=== PATIENT | male | born 1945 | race Caucasian/White ===

== ENCOUNTER 2020-04-24 21:18 | Emergency (ER) | payer OTHER ==
--- NOTE | 2020-04-24 21:47 | EDM.PDOC ---
ED HPI GENERAL MEDICAL PROBLEM - General Chief Complaint: General Stated Complaint: chest pain Time Seen by Provider: 04/24/20 21:46 Source of Information: Reports: Patient - History of Present Illness INITIAL COMMENTS - FREE TEXT/NARRATIVE: Underwent three-vessel bypass with admission 07 April 2020 [facility]. Date of discharge 14 April 2020.. Non-ST elevated myocardial infarct had occurred with transfer from the in [place] to [place]. He is experienced left chest pain since the event, stating it was mild at first and was there while in the hospital but minimal. Since his discharge, and specifically the past 3 days has worsened in the left chest slightly above and lateral of the left nipple. This worsens with deep inspiration motion and palpation. This evening contact with [place] nurse line who advised him to seek evaluation here at the [facility]. They called advising this patient would be presenting. He denies shortness of breath, or any other factors. Denies any palpitations or racing heart. Onset Date: 04/10/20 Duration: Week(s):, Constant, Getting Worse Location: Reports: Chest Quality: Reports: Ache (Constant ache becoming sharp with motion/breath/palpation), Sharp Severity: Moderate Improves with: Reports: None Worsens with: Reports: Breathing, Movement Associated Symptoms: Reports: No Other Symptoms Left Upper Chest Pain Score (Numeric/FACES): 4 - Related Data Allergies Allergy/AdvReac Type Severity Reaction Status Date / Time Mujoqgz-Dov-Oan Reductase Allergy Other Verified 04/24/20 22:13 Inhibitor Home Meds: Home Meds Acetaminophen 650 mg PO Q4H PRN 04/24/20 [History] Amiodarone [Cordarone] 200 mg PO BID 04/24/20 [History] Apixaban [Eliquis] 5 mg PO BID 04/24/20 [History] Beta-Carotene(A) w/C & E/Min [Prosight] 1 tab PO DAILY 04/24/20 [History] Calcium Carbonate [Calcium] 600 mg PO DAILY 04/24/20 [History] Cholecalciferol (Vitamin D3) [Vitamin D3] 25 mcg PO DAILY 04/24/20 [History] Hydrocodone/Acetaminophen [Hydrocodone-Acetamin 5-325 mg] 1 tab PO Q4H PRN 04/24/20 [History] Metoprolol Tartrate 50 mg PO BID 04/24/20 [History] Milk Thistle Seed Extract [Milk Thistle Extract] 1 cap PO DAILY 04/24/20 [History] Multivitamins/Minerals [Vitamins and Minerals] 1 tab PO DAILY 04/24/20 [History] Omeprazole 20 mg PO DAILY 04/24/20 [History] [place]/Pumpkin/Pyg/Zn/B6 [Sm [place] Complex Sftgel] 1 cap PO DAILY 04/24/20 [History] Ubidecarenone [Coenzyme Q10] 100 mg PO DAILY 04/24/20 [History] Vitamin B Complex [B Complex] 1 tab PO DAILY 04/24/20 [History] lisinopriL [Lisinopril] 5 mg PO DAILY 04/24/20 [History] Past Medical History HEENT History: Reports: Glaucoma, Hard of Hearing, Impaired Vision Cardiovascular History: Reports: Afib, Bypass, High Cholesterol Respiratory History: Reports: SOB Gastrointestinal History: Reports: PUD Genitourinary History: Reports: None Musculoskeletal History: Reports: None Neurological History: Reports: None Psychiatric History: Reports: None Endocrine/Metabolic History: Reports: None Hematologic History: Reports: None Immunologic History: Reports: None Oncologic (Cancer) History: Reports: None Dermatologic History: Reports: None - Infectious Disease History Infectious Disease History: Reports: None - Past Surgical History Head Surgeries/Procedures: Reports: None Cardiovascular Surgical History: Reports: Coronary Artery Bypass Other Cardiovascular Surgeries/Procedures: Angiogram Respiratory Surgical History: Reports: None GI Surgical History: Reports: Appendectomy, Other (See Below) (Peptic ulcer repa ir, stomach) Endocrine Surgical History: Reports: None Neurological Surgical History: Reports: None Musculoskeletal Surgical History: Reports: None Oncologic Surgical History: Reports: None Dermatological Surgical History: Reports: None Social & Family History - Family History Family Medical History: Noncontributory - Tobacco Use Smoking Status *Q: Former Smoker Tobacco Use Within Last Twelve Months: No Years of Tobacco use: 21 Smoking Cessation Information Provided To Patient: No Second Hand Smoke Exposure: No ED ROS GENERAL - Review of Systems Review Of Systems: Comprehensive ROS is negative, except as noted in HPI. Constitutional: Denies: Fever, Chills, Malaise ED EXAM, GENERAL - Physical Exam Exam: See Below Free Text/Narrative:: Alert oriented x3 in no acute distress. Rates his pain a 3 or 4, that increases to an 8 with direct pressure over the rib or to deep breath. HEENT is negative to discharge or deformity. PERRLA no icterus no injection. Jakin moist mucous membranes with no erythema. Neck is soft supple no lymphadenopathy no bruit appreciated. Thorax is clear no wheezes no crackles. Cardiac is S1-S2 no appreciated murmur. There is a new incision to the sternum from his recent CABG. Abdomen is soft bowel sounds are present there is an old scar from his peptic ulcer disease repair. No flank pain. rectal is deferred. There is no edema to the lower extremities. Radial pulse correlates with apical heart rate. Palpation of the left lateral chest wall 1 rib above the nipple is point tenderness nonradiating. EKG INTERPRETATION EKG Date: 04/24/20 Time: 21:48 Rhythm: NSR Rate (Beats/Min): 65 [place]: Normal P-Wave: Present QRS: Normal ST-T: Normal QT: Normal Comparison: NA - No Prior EKG Course - Vital Signs Last Recorded V/S: Last Vital Signs Temp 36.5 C 04/24/20 22:06 Pulse 67 04/24/20 23:22 Resp 26 H 04/24/20 23:22 BP 123/50 L 04/24/20 23:22 Pulse Ox 97 04/24/20 23:22 - Orders/Labs/Meds Orders: Active Orders 24 hr Category Date Time Status EKG Documentation Completion [RC] ASDIRECTED Care 04/24/20 21:51 Active Peripheral IV Care [RC] . DIRECTED Care 04/24/20 21:53 Active Chest 1V Frontal [CR] Stat Exams 04/24/20 21:50 Ordered Sodium Chloride 0.9% [Saline Flush] Med 04/24/20 21:53 Active 10 ml FLUSH Q8HR PRN Peripheral IV Insertion Adult [OM.PC] Routine Oth 04/24/20 21:53 Ordered EKG 12 Lead [EK] Stat Ther 04/24/20 21:45 Ordered Medication Orders Sodium Chloride (Saline Flush) 10 ml FLUSH Q8HR PRN PRN Reason: keep vein open Labs: Laboratory Tests 04/24/20 04/24/20 Range/Units 22:00 22:00 WBC 10.43 H (5.00-10.00) 10^3/uL RBC 3.62 L (4.50-6.00) 10^6/uL Hgb 11.2 L (13.0-17.0) g/dL Hct 32.9 L (40.0-52.0) % MCV 90.9 (82.0-92.0) fL MCH 30.9 (27.0-31.0) pg MCHC 34.0 (32.0-36.0) g/dL RDW 12.7 (11.5-14.5) % Plt Count 495 H (150-400) 10^3/uL MPV 8.9 (7.4-10.4) fL Immature Gran % (Auto) 0.6 (0.0-5.0) % Neut % (Auto) 64.7 (50.0-70.0) % Lymph % (Auto) 24.0 (20.0-40.0) % [place] % (Auto) 7.8 (2.0-8.0) % Eos % (Auto) 2.1 (1.0-3.0) % Baso % (Auto) 0.8 (0.0-1.0) % Neut # (Auto) 6.76 (2.50-7.00) 10^3/uL Lymph # (Auto) 2.50 (1.00-4.00) 10^3/uL [place] # (Auto) 0.81 H (0.10-0.80) 10^3/uL Eos # (Auto) 0.22 (0.10-0.30) 10^3/uL Baso # (Auto) 0.08 (0.00-0.10) 10^3/uL Immature Gran # (Auto) 0.06 (0.00-0.50) 10^3/uL Sodium 137 (136-145) mmol/L Potassium 4.2 (3.3-5.3) mmol/L Chloride 103 (98-115) mmol/L Carbon Dioxide 26.4 (21.0-32.0) mmol/L Anion Gap 11.8 (5-15) mmol/L BUN 38 H (6-25) mg/dL Creatinine 1.91 H (0.51-1.17) mg/dL Est Cr Clr Drug Dosing 30.76 mL/min Estimated GFR (MDRD) 34 mL/min Glucose 124 H (75 - 99) mg/dL Calcium 9.2 (8.7-10.3) mg/dL Total Bilirubin 0.3 (0.2-1.0) mg/dL AST 26 (15-37) U/L ALT 34 (12-78) U/L Alkaline Phosphatase 111 (46-116) IU/L Creatine Kinase 25 L (26-276) U/L CK-MB (CK-2) 0.70 (0.00-4.30) ng/mL Troponin I 0.04 (0.00-0.070) ng/mL B-Natriuretic Peptide 273 H (0-100) pg/mL Total Protein 7.5 (6.4-8.2) g/dL Albumin 3.25 (3.00-4.80) g/dL Meds: Medications Generic Name Dose Route Start Last Admin Trade Name Freq PRN Reason Stop Dose Admin Sodium Chloride 10 ml 04/24/20 21:53 Saline Flush FLUSH Q8HR PRN keep vein open - Radiology Interpretation Free Text/Narrative:: 1 view chest shows cardiac silhouette upper limits. Sternal wires noted. No evidence of pneumothorax. - Re-Assessments/Exams Free Text/Narrative Re-Assessment/Exam: 04/24/20 23:25 Contacted [place] 1 call to get information to the nurse triage line that advised Mr. Cantrell to present. Was attempting to forward all information for his follow-up. 1 call is unable to reach that department. Departure - Departure Time of Disposition: 23:18 Disposition: Home, Self-Care 01 Condition: Good Clinical Impression: Chest wall pain following surgery, Left-sided chest wall pain, Pleural effusion on left, S/P CABG x 3 - Discharge Information *PRESCRIPTION DRUG MONITORING PROGRAM REVIEWED*: Not Applicable *COPY OF PRESCRIPTION DRUG MONITORING REPORT IN PATIENT IRMA: Not Applicable Instructions: Chest Wall Pain, [id number] Referrals: Brittany Emerson MD [Primary Care Provider] - Forms: ED Department Discharge Additional Instructions: There is no evidence of cardiac involvement with tonight's evaluation. Lab work and EKG are negative for heart involvement. You have a very small amount of fluid at the base of the left lung, which sometimes occurs after heart surgery. Your kidney number(creatinine) is elevated, likely from testing and procedures during your hospitalization. Make sure you maintain adequate water intake. The position and reproduction of your pain with breathing as well as when I push on it yields it to be chest wall/rib/musculature discomfort, likely secondary of the bypass surgery. Continue all your medications as directed. Follow-up on Monday as previously scheduled. If this continues or worsens options for further evaluation would be considered, this may be repeated here, or further studies needing to be obtained at the [facility]. This would be such as ultrasound or cardiac ultrasound/echocardiogram. Call or return if symptoms worsen Sepsis Event Note (ED) - Focused Exam Vital Signs: Vital Signs Temp Pulse Resp BP Pulse Ox 04/24/20 23:22 67 26 H 123/50 L 97 04/24/20 23:07 59 L 16 118/42 L 98 04/24/20 22:53 63 22 H 98/37 L 96 04/24/20 22:06 36.5 C 65 19 113/38 L 96 - Problem List & Annotations (1) Chest wall pain following surgery SNOMED Code(s): 112207975 Code(s): R07.89 - OTHER CHEST PAIN; G89.18 - OTHER ACUTE POSTPROCEDURAL PAIN Status: Acute Priority: High (2) Left-sided chest wall pain SNOMED Code(s): 468711567 Code(s): R07.89 - OTHER CHEST PAIN Status: Acute Priority: High (3) S/P CABG x 3 SNOMED Code(s): 214244855, 099280958, 550785786 Code(s): Z95.1 - PRESENCE OF AORTOCORONARY BYPASS GRAFT Status: Chronic Priority: Medium (4) Pleural effusion on left SNOMED Code(s): 77860824 Code(s): J90 - PLEURAL EFFUSION, NOT ELSEWHERE CLASSIFIED Status: Acute (5) Elevated serum creatinine SNOMED Code(s): 722315437 Code(s): R79.89 - OTHER SPECIFIED ABNORMAL FINDINGS OF BLOOD CHEMISTRY Stat us: Acute Priority: Medium - Problem List Review Problem List Initiated/Reviewed/Updated: Yes - My Orders Last 24 Hours: My Active Orders 04/24/20 21:45 EKG 12 Lead [EK] Stat 04/24/20 21:50 Chest 1V Frontal [CR] Stat 04/24/20 21:51 EKG Documentation Completion [RC] ASDIRECTED 04/24/20 21:53 Peripheral IV Care [RC] . DIRECTED Sodium Chloride 0.9% [Saline Flush] 10 ml FLUSH Q8HR PRN Peripheral IV Insertion Adult [OM.PC] Routine - Assessment/Plan Last 24 Hours: My Active Orders 04/24/20 21:45 EKG 12 Lead [EK] Stat 04/24/20 21:50 Chest 1V Frontal [CR] Stat 04/24/20 21:51 EKG Documentation Completion [RC] ASDIRECTED 04/24/20 21:53 Peripheral IV Care [RC] . DIRECTED Sodium Chloride 0.9% [Saline Flush] 10 ml FLUSH Q8HR PRN Peripheral IV Insertion Adult [OM.PC] Routine Plan: There is no evidence of cardiac involvement with tonight's evaluation. Lab work and EKG are negative for heart involvement. You have a very small amount of fluid at the base of the left lung, which s ometimes occurs after heart surgery. Your kidney number(creatinine) is elevated, likely from testing and procedures during your hospitalization. Make sure you maintain adequate water intake. The position and reproduction of your pain with breathing as well as when I push on it yields it to be chest wall/rib/musculature discomfort, likely secondary of the bypass surgery. Continue all your medications as directed. Follow-up on Monday as previously scheduled. If this continues or worsens options for further evaluation would be considered, this may be repeated here, or further studies needing to be obtained at the [facility] in [place]. This would be such as ultrasound or cardiac ultrasound/echocardiogram. Call or return if symptoms worsen
[2020-04-24] MEDS ORDERED: Sodium Chloride 0.9% 10 ML Syringe FLUSH PRN (21:53)
[2020-04-24 23:07] LABS: ANION GAP 11.8 mmol/L (5-15)
--- NOTE | 2020-04-25 10:37 | CR ---
[id number] RAD/RAD Chest PA or AP 1V EXAM: RAD Chest PA or AP 1V INDICATION: CHEST PAIN. COMPARISON: None. DISCUSSION: Cardiomediastinal silhouette is enlarged. Median sternotomy wires. Trace left pleural effusion. No pneumothorax. No airspace consolidation. IMPRESSION: Trace left pleural effusion. Bin Mahmood DO 04/25/20 1036 Thank you for allowing us to participate in the care of your patient.
== END 2020-04-24 23:44 | disposition home or self-care (01) ==
LOC: KA.ED 21:18
DX: J90 Pleural effusion, not elsewhere classified (principal); R07.89 Other chest pain; I48.91 Unspecified atrial fibrillation; Z87.891 Personal history of nicotine dependence; Z95.1 Presence of aortocoronary bypass graft; Z88.8 Allergy status to other drugs, medicaments and biological substances; Z79.01 Long term (current) use of anticoagulants; Z79.899 Other long term (current) drug therapy
CPT/HCPCS: 71045; 80053; 82550; 82553; 83880; 84484; 85025; 93005; 99284; 99285-25